=== PATIENT | male | born 1990 | race Hispanic/Latino ===

== ENCOUNTER 2019-01-30 18:40 | Emergency (ER) | payer SELFPAY ==
[~2019-01-30 18:40] MED LIST: Iopamidol-370 76% 500 ML 1 ML ONE
[2019-01-30 19:04] LABS: #Basophils 0.1 thou/uL (0.0-0.2); #Eosinphils 0.1 thou/uL (0.0-0.7); #Lymphocytes 3.3 thou/uL (1.20-3.40); #Monocytes 0.7 thou/uL (0.11-0.59); #Neutrophils 3.4 thou/uL (1.40-6.50); %Basophils 0.9 % (0.0-1.0); %Eosinophils 1.6 % (0.0-10.0); %Lymphocytes 43.5 % (21.0-51.0); %Monocytes 9.1 % (0.0-10.0); Hemoglobin 15.7 g/dL (14.0-18.0); Mean Corpuscular HGB CONC 35.1 g/dL (32.0-36.0); Mean Corpuscular Hemoglobin 32.4 pg (27.0-31.0); Mean Corpuscular Volume 92.2 fL (78.0-98.0); Mean Platelet Volume 8.1 fL (7.4-10.4); Platelet Count 210 thou/uL (130-400); RBC Distribution Width 11.1 % (11.5-14.5); Red Blood Cell (RBC) Count 4.86 mill/uL (4.70-6.10); White Blood Cell (WBC) Count 7.6 thou/uL (4.8-10.8)
[2019-01-30 19:31] LABS: ALT (SGPT) 17 U/L (8-55); AST (SGOT) 25 U/L (5-34); Albumin 4.7 g/dL (3.5-5.0); Alkaline Phosphatase 90 U/L (40-110); Anion Gap 11 mmol/L (10-20); BUN (Urea Nitrogen) 19 mg/dL (8.9-20.6); Bilirubin, Total 0.3 mg/dL (0.2-1.2); Calc. Creatinine Clearance 0 mL/min (70-130); Calcium 9.4 mg/dL (7.8-10.44); Carbon Dioxide 28 mmol/L (22-29); Chloride 103 mmol/L (98-107); Estimated GFR-MDRD 82; Glucose 95 mg/dL (70-105); Lipase 32 U/L (8-78); Potassium 3.8 mmol/L (3.5-5.1); Protein, Total 7.7 g/dL (6.0-8.3); Sodium 138 mmol/L (136-145)
[2019-01-30 22:30] LABS: Bilirubin Negative (Negative); Blood, Urine Negative (Negative); Clarity Clear (Clear); Glucose, Urine (Dipstick) Normal (Negative); Leukocyte Negative Leu/uL (Negative); Nitrite Negative (Negative); Protein, Urine (Dipstick) Negative (Neg-Trace); Urobilinogen Normal mg/dL (Less than 2)
--- NOTE | 2019-01-30 22:44 | CT ---
CT ABDOMEN AND PELVIS WITH IV CONTRAST: 01/30/19 HISTORY: Abdominal pain. FINDINGS: The lung bases are clear. No free air, free fluid or lymphadenopathy is seen in the abdomen or pelvis . The liver, spleen, pancreas, adrenal glands and kidneys are normal. No calcified gallstones are not ed. The small bowel loops are not abnormally dilated. A normal appearing appendix is present. No acute os seous abnormalities are seen. IMPRESSION: No acute process. POS: OFF
[2019-01-30] MEDS ORDERED: Ketorolac Tromethamine 30 MG/ML VIAL ONE (23:55)
== END 2019-01-31 00:01 | disposition home or self-care (01) ==
LOC: ERS 18:40
DX: R10.31 Right lower quadrant pain (principal)
CPT/HCPCS: 36415; 74177; 80053; 81003; 83690; 85025; 96374; J1885; Q9967